=== PATIENT | female | born 1955 | race Caucasian/White ===

== ENCOUNTER 2019-06-13 18:43 | Emergency (ER) | payer OTHER ==
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
[2019-06-13 19:02] VITALS: TEMP 98.5; BMI 23.1
[2019-06-13] MEDS ORDERED: morphine CARPU-JECT 4 MG/1 ML DISP.SYRIN IVPUSH ONE ×2 (20:33→20:34)
[2019-06-13] MEDS ORDERED: morphine SULFATE 4 MG/ML VIAL ONE (20:44)
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
[2019-06-13 23:07] VITALS: BP 166/74; PULSE 68
[2019-06-14] MEDS ORDERED: KETOROLAC TROMETHAMINE 30 MG/1 ML VIAL IVPUSH ONE (00:07)
[2019-06-14] MEDS ORDERED: KETOROLAC TROMETHAMINE 30 MG/1 ML VIAL ONE (00:11)
== END 2019-06-14 00:25 | disposition home or self-care (01) ==
LOC: JER 18:43
PROC: 3E0333Z Introduction of Anti-inflammatory into Peripheral Vein, Percutaneous Approach (ICD-10-PCS; principal; 2019-06-13)
PROC: 3E033NZ Introduction of Analgesics, Hypnotics, Sedatives into Peripheral Vein, Percutaneous Approach (ICD-10-PCS; 2019-06-13)
DX: Z04.1 Encounter for examination and observation following transport accident (principal); V03.90XA Pedestrian on foot injured in collision with car, pick-up truck or van, unspecified whether traffic or nontraffic accident, initial encounter; Y93.89 Activity, other specified; Y92.410 Unspecified street and highway as the place of occurrence of the external cause; K92.9 Disease of digestive system, unspecified
CPT/HCPCS: 70450-TC; 71045-TC-FY; 71101-TC-RT-FY; 72125-TC; 73523-TC-FY; 73562-TC-LT-FY; 73562-TC-RT-FY; 99283-25

== ENCOUNTER 2019-06-21 09:17 | Day surgery (SDC) | payer OTHER ==
[2019-06-18 12:20] VITALS: BMI 23.1
[2019-06-21] MEDS ORDERED: MIDAZOLAM HCL 2 MG/2 ML SINGLE DOSE VIAL ONE (09:44)
[2019-06-21] MEDS ORDERED: PROPOFOL 20 ML ONE ×2 (09:45)
[2019-06-21] MEDS ORDERED: ONDANSETRON 4 MG/2 ML VIAL IVPUSH PRN (09:49)
[2019-06-21] MEDS ORDERED: oxyCODONE HCL 5 MG TABLET PO PRN ×2 (09:49)
[2019-06-21] MEDS ORDERED: LACTATED RINGERS SOLUTION 1,000 ML IV SCH (10:00)
--- NOTE | 2019-06-21 10:14 | OP ---
Operative Note - Note: Operative Date: 06/21/19 Pre-Operative Diagnosis: Right patellar fracture Operation: Right patella ORIF Post-Operative Diagnosis: Same as Pre-op Surgeon: Henok Suarez Campaign Advisor: Aylin Russ Anesthesia: General Operative Report Dictated: Yes
[2019-06-21] MEDS ORDERED: ACETAMINOPHEN INJECTION 100 ML IVPB ONE (10:38)
[2019-06-21] MEDS ORDERED: AMPICILLIN NA/SULBACTAM NA 1.5 GM VIAL ONE (10:45)
[2019-06-21] MEDS ORDERED: LIDOCAINE HCL/PF 2% SDV 5ML VIAL ONE (10:46)
[2019-06-21] MEDS ORDERED: KETOROLAC TROMETHAMINE 30 MG/1 ML VIAL ONE (10:46)
[2019-06-21] MEDS ORDERED: DEXAMETHASONE SOD PHOSPHATE 4 MG/1 ML VIAL ONE (10:46)
[2019-06-21] MEDS ORDERED: ONDANSETRON 4 MG/2 ML VIAL ONE ×2 (10:46→12:22)
[2019-06-21] MEDS ORDERED: GLYCOPYRROLATE 0.2 MG/1 ML VIAL ONE (11:10)
[2019-06-21] MEDS ORDERED: ceFAZolin SODIUM 1 GM VIAL ONE (11:10)
[2019-06-21] MEDS ORDERED: TRANEXAMIC ACID 1000 MG/10 ML VIAL ONE (11:25)
[2019-06-21] MEDS ORDERED: BUPIVACAINE HCL/PF 0.5% (5MG/ML) 10 ML VIAL ONE (13:09)
[2019-06-21] MEDS ORDERED: HYDROmorphone HCL/PF 1 MG/ML AMP ONE (13:13)
[2019-06-21] MEDS ORDERED: BUPIVACAINE HCL/PF 0.5% (5 MG/ML) 30 ML VIAL IJ ONE (13:16)
[2019-06-21] MEDS ORDERED: PROMETHAZINE HCL 25 MG/1 ML VIAL ONE (15:00)
[2019-06-21] MEDS ORDERED: oxyCODONE HCL 5 MG TABLET ONE (15:58)
--- NOTE | 2019-06-21 16:36 | OP ---
DATE OF OPERATION: 06/21/2019 PREOPERATIVE DIAGNOSIS: Comminuted right patellar fracture. POSTOPERATIVE DIAGNOSIS: Comminuted right patellar fracture. PROCEDURE: Right patellar open reduction and internal fixation. SURGEON: Henok Chanel MD SLEEVE IRONER: NICOLETTE Grigsby, whose skillful assistance was necessary for the safe and timely performance of this procedure. Ms. Russ was able to provide limb positioning, retraction, assist in insertion of orthopedic fixation hardware. ANESTHESIA: General. POSTOPERATIVE CONDITION: Stable. COMPLICATIONS: None. INDICATIONS: This is a pleasant, 63-year-old female who had suffered a fall. She was found to have a significantly displaced patellar fracture. Treatment options including nonoperative versus operative management were reviewed. Operative risks were reviewed in detail including bleeding, infection, neurovascular injury, need for other surgery, postoperative pain and stiffness, nonunion, malunion, hardware failure or cutout. We discussed medical risks such as heart attack, stroke, DVT, PE, and . We discussed the risks of post-traumatic arthrosis. I reviewed the postoperative rehabilitation protocol. I addressed all the patient's and her family's questions and concerns. She voiced understanding and elected to proceed. DESCRIPTION OF PROCEDURE: Patient was brought to the operating room where general anesthetic was administered. The right lower extremity was then prepped and draped in the usual sterile fashion. A preoperative dose of antibiotics was given, and the usual timeout procedure was performed. The incision was now planned out over the midline of the knee over the patella. The incision was carried down through skin and subcutaneous tissue. Electrocautery was used to maintain hemostasis. Initially, the tourniquet had been inflated. However, after 11 minutes, it was found that it was not being particularly effective and, therefore, was let down. The dissection was then carried down to the level of the patella where a fracture was identified. A significant amount of hematoma was evacuated. The fracture site was irrigated. Any loose debris was removed, and a significant amount of the fracture was highly comminuted, and multiple bony fragments were deemed non-repairable. The fracture now debrided, it was apparent that while the articular surface was intact on the inferior piece, the anterior surface of the patella had almost no cortical bone left intact. The inferior pole was more intact. The proximal piece demonstrated significant comminution with a large fissure extending right down the midline in the [id number] direction and multiple fragments along the coronal plane as well. Utilizing fracture reduction forceps as well as a 2.0 K-wire used as a joystick, the patella was manipulated into near-anatomic alignment. Two K-wires from the cannulated screw set were then fired in the anterior in a [id number] direction, securing the reduction in place. At this point, the articular surface had been lined up anatomically. There was only a slight gap between the proximal and distal fragments. The reduction was adjusted as best possible and was satisfactory. The K-wires were then measured and then were overdrilled more distally. The more lateral screw was inserted initially after tapping, obtaining good purchase and maintaining the reduction. While placing the medial screw, it was found that it was sitting in too much comminution and was getting any purchase. The decision, therefore, was made to remove the screw. A guidewire was now placed in a more oblique direction to gain better purchase into the most superomedial fragments, and after drilling, tapping, and inserting the screw, better purchase was obtained here. At this point, the entire construct was examined both visually and fluoroscopically. Both fracture reduction and hardware placement were satisfactory. The K-wires were now removed from the cannulated screws, and the FiberTape suture was passed in a [id number] fashion. The FiberWire was then tied firmly, securing this with a tension band type construct. Fluoroscopy was now repeated, and there was a slight change in the reduction with less than a millimeter of step-off. This was deemed satisfactory. Given the comminution present, it was felt that removing the hardware to adjust this could result in further breakdown of the construct. The knee was now copiously irrigated. There was a small rent in the lateral retinaculum which was repaired using 0 Vicryl. The deep subcutaneous tissues were repaired using 0 Vicryl as well. The superficial subcutaneous tissue was repaired using 2-0 Vicryl. The skin was closed using running 2-0 nylon. Patient was placed in sterile dressings and a cylinder cast. She was transferred to the recovery room in stable condition after extubation. It should be noted that prior to placing the dressings, the patient was administered 0.5% Marcaine about the wounds in order to provide for postoperative analgesia. HENOK CHANEL M.D. [id number]
[2019-06-21 18:08] VITALS: TEMP 98.1
[2019-06-21 18:19] VITALS: BP 175/81; PULSE 69
== END 2019-06-21 17:50 | disposition home or self-care (01) ==
LOC: FASU 09:17
PROVIDERS: ATTEND Orthopaedic Surgery Sports Medicine
PROC: 0QSD04Z Reposition Right Patella with Internal Fixation Device, Open Approach (ICD-10-PCS; principal; 2019-06-21 11:22)
DX: S82.044A Nondisplaced comminuted fracture of right patella, initial encounter for closed fracture (principal); X58.XXXA Exposure to other specified factors, initial encounter; Y93.9 Activity, unspecified; Y92.9 Unspecified place or not applicable
CPT/HCPCS: 73560-TC-RT-FY; 94760; J0131